=== PATIENT | female | born 1960 | race Caucasian/White ===

== ENCOUNTER → 2017-02-01 | Outpatient (CLI) | payer BC | END | disposition disaster alternative care site (69) | LOC: GBCOE 01-25 08:00 | DX: Z12.31 Encounter for screening mammogram for malignant neoplasm of breast (principal) | CPT/HCPCS: G0202 ==

== ENCOUNTER → 2017-05-06 | Outpatient (CLI) | payer BC | END | disposition disaster alternative care site (69) | LOC: GRAD 08:16 | DX: R59.0 Localized enlarged lymph nodes (principal) ==